=== PATIENT | female | born 1950 | race Caucasian/White ===

== ENCOUNTER → 2016-08-29 | Outpatient (CLI) | payer MEDICARE, BC ==
--- NOTE | 2016-08-29 17:21 | MY ---
EXAMINATION: Bilateral digital mammography utilizing CAD. HISTORY: Screening exam. Comparison is made to previous studies dated 08/13/2015, 04/06/2014, 2010.. FINDINGS: Bilateral fibroglandular densities. There is a two-view mass within the lower inner left breast which has slightly increased in size. Otherwise, no suspicious calcifications, masses or ar chitectural distortions. No pathologic appearing lymph nodes, no abnormal skin thickening or nippl e inversion. Other CAD highlighted regions appear normal at this time. IMPRESSION: BI-RADS category 0 - Incomplete study. Left breast ultrasound is needed for further jay jay luation. THE FALSE-NEGATIVE RATE OF MAMMOGRAM IS APPROXIMATELY 10%. MANAGEMENT OF A PALPABLE ABNORMALITY MUST BE BASED UPON CLINICAL GROUNDS. SENSITIVITY FOR DETECTION OF ABNORMALITIES IN DENSE BREASTS IS LOW. NOTE: A letter will be sent to the patient regarding findings. [facility] -- JAYLYN Robles [phone] - FAX [phone]
== END ==
LOC: MW.MAM 08:48
PROVIDERS: ATTEND Obstetrics & Gynecology
DX: Z12.31 Encounter for screening mammogram for malignant neoplasm of breast (principal)
CPT/HCPCS: G0202; G0202-26

== ENCOUNTER → 2016-09-08 | Outpatient (CLI) | payer MEDICARE, BC | LOC: MW.CHGS 08:00 | PROVIDERS: ATTEND Surgery | DX: D12.6 Benign neoplasm of colon, unspecified (principal) | CPT/HCPCS: 99203 ==

== ENCOUNTER 2016-09-20 08:33 | Day surgery (SDC) | payer MEDICARE, BC ==
[~2016-09-20 08:33] MED LIST: Glycopyrrolate 0.2 MG/ML SDV ONE; Labetalol 100 MG/20 ML MDV ONE; Lactated Ringers 1,000 ML IV SCH; Lidocaine 2% 5 ML SDV ONE; Propofol 200 MG/20 ML SDV ONE; Sodium Chloride 0.9% 10 ML Syringe FLUSH PRN; Sodium Chloride 0.9% 2.5 ML Syringe FLUSH PRN; ePHEDrine 50 MG/ML SDV ONE; fentaNYL 100 MCG/2 ML SDV ONE
--- NOTE | 2016-09-20 09:39 | PCM.PREANE ---
Preanesthetic Assessment - Anesthesia/Transfusion/Family Hx Anesthesia History: Prior Anesthesia Without Reaction Family History of Anesthesia Reaction: No Transfusion History: No Prior Transfusion(s) - Review of Systems General: No Symptoms Pulmonary: No Symptoms Cardiovascular: No Symptoms Gastrointestinal: No symptoms Neurological: No Symptoms Other: Reports: None - Physical Assessment NPO Status Date: 09/19/16 NPO Status Time: 21:00 O2 Sat by Pulse Oximetry: 99 Respiratory Rate: 16 Vital Signs: Last Vital Signs Temp 36.9 C 09/20/16 09:02 Pulse 69 09/20/16 09:02 Resp 16 09/20/16 09:02 BP 158/78 H 09/20/16 09:02 Pulse Ox 99 09/20/16 09:02 Height: 1.64 m Weight: 85.729 kg ASA Class: 2 Mental Status: Alert & Oriented x3 Airway Class: Mallampati = 1 Dentition: Reports: Dentures Lungs: Clear to auscultation, Normal respiratory effort Cardiovascular: Regular Rate, Regular Rhythm - Allergies Allergies/Adverse Reactions: Allergies Allergy/AdvReac Type Severity Reaction Status Date / Time Penicillins Allergy Rash Verified 09/15/16 16:51 - Anesthesia Plan Pre-Op Medication Ordered: None - Acknowledgements Anesthesia Type Planned: MAC Pt an Appropriate Candidate for the Planned Anesthesia: Yes Alternatives and Risks of Anesthesia Discussed w Pt/Guardian: Yes Pt/Guardian Understands and Agrees with Anesthesia Plan: Yes PreAnesthesia Questionnaire Other HEENT History: wears glasses, has upper and lower dentures Cardiovascular History: Reports: None Respiratory History: Reports: None Gastrointestinal History: Reports: Colon polyp Genitourinary History: Reports: None [employer] WORKER History: Reports: None Musculoskeletal History: Reports: None Neurological History: Reports: None Psychiatric History: Reports: None Endocrine/Metabolic History: Reports: Obesity/BMI 30+ Hematologic History: Reports: None Immunologic History: Reports: None Oncologic (Cancer) History: Reports: None Dermatologic History: Reports: None - Past Surgical History Head Surgeries/Procedures: Reports: None HEENT Surgical History: Reports: Tonsillectomy Cardiovascular Surgical History: Reports: None Respiratory Surgical History: Reports: None GI Surgical History: Reports: Colonoscopy Female Surgical History: Reports: Breast biopsy, D&C Endocrine Surgical History: Reports: None Neurological Surgical History: Reports: None Musculoskeletal Surgical History: Reports: None Oncologic Surgical History: Reports: None Dermatological Surgical History: Reports: None - SUBSTANCE USE Smoking Status *Q: Former Smoker Recreational Drug Use History: No - HOME MEDS Home Medications: Home Meds . [No Known Home Meds] 09/15/16 [History] - CURRENT (IN HOUSE) MEDS Current Meds: Current Medications Lactated Ringer's (Ringers, Lactated) 1,000 mls @ 125 mls/hr IV ASDIRECTED [place] Last Admin: 09/20/16 09:05 Dose: 125 mls/hr Sodium Chloride (Saline Flush) 10 ml FLUSH ASDIRECTED PRN PRN Reason: Keep Vein Open Sodium Chloride (Saline Flush) 2.5 ml FLUSH ASDIRECTED PRN PRN Reason: Keep Vein Open Discontinued Medications Ephedrine Sulfate (Ephedrine Sulfate) Confirm Administered Dose 50 mg .ROUTE .STK-MED ONE Stop: 09/20/16 08:27 Fentanyl (Sublimaze) Confirm Administered Dose 100 mcg .ROUTE .STK-MED ONE Stop: 09/20/16 08:03 Glycopyrrolate (Robinul) Confirm Administered Dose 0.2 mg .ROUTE .STK-MED ONE Stop: 09/20/16 08:30 Labetalol HCl (Normodyne) Confirm Administered Dose 100 mg .ROUTE .STK-MED ONE Stop: 09/20/16 08:32 Lidocaine (Xylocaine-Mpf 2%) Confirm Administered Dose 5 ml .ROUTE .STK-MED ONE Stop: 09/20/16 08:03 Propofol (Diprivan 20 Ml) Confirm Administered Dose 400 mg .ROUTE .STK-MED ONE Stop: 09/20/16 08:03
[2016-09-20] MEDS ORDERED: Glycopyrrolate 0.2 MG/ML SDV ONE (09:51)
--- NOTE | 2016-09-20 10:18 | PCM.OPNOTE ---
- General Post-Op/Procedure Note Date of Surgery/Procedure: 09/20/16 Operative Procedure(s): Screening colonoscopy Findings: 2mm sessile polyp in transverse colon at 80cm Pre Op Diagnosis: colon polyp Post-Op Diagnosis: colon polyp and diverticulosis Anesthesia Technique: TANNER Primary Surgeon: Jonna Hsu Condition: Good
--- NOTE | 2016-09-20 10:27 | PCM.POSTAN ---
POST ANESTHESIA ASSESSMENT - MENTAL STATUS Mental Status: alert, oriented - RESPIRATORY Respiratory Status: respiratory rate WNL, airway patent - CARDIOVASCULAR CV Status: pulse rate WNL, blood pressure stable - GASTROINTESTINAL GI Status: no symptoms - POST OP HYDRATION Hydration Status: adequate & stable
--- NOTE | 2016-09-20 10:27 | PCM48HPAN ---
Post Anesthesia Note - EVALUATION WITHIN 48HRS OF ANESTHETIC Vital Signs in Normal Range: Yes Patient Participated in Evaluation: Yes Respiratory Function Stable: Yes Airway Patent: Yes Cardiovascular Function Stable: Yes Hydration Status Stable: Yes Pain Control Satisfactory: Yes Nausea and Vomiting Control Satisfactory: Yes Mental Status Recovered: Yes
[2016-09-20 10:37] VITALS: BP 120/79
--- NOTE | 2016-09-20 17:01 | OR ---
SURGEON: JONNA HSU MD DATE OF PROCEDURE: 09/20/2016 PREOPERATIVE DIAGNOSIS: History of colon polyps. POSTOPERATIVE DIAGNOSIS: Transverse colon polyp. PROCEDURE PERFORMED: Colonoscopy. ENDOSCOPIST: Jonna Hsu M.D. INSTRUMENT USED: Olympus colonoscope. ANESTHESIA: MAC. EXTENT OF EXAM: To the cecum. PREPARATION: Good. LIMITATIONS: None. INDICATIONS FOR EXAMINATION: The patient is a 66-year-old female, who had a colonoscopy done 5 years ago and was found to have a single colon polyp. Because of this, she is back for her 5- year repeat colonoscopy. We discussed the procedure as well as expected perioperative course. We discussed the risks, including bleeding, infection, or damage to surrounding structures, including perforation. The patient verbalized understanding and wishes to proceed. PROCEDURE IN DETAIL: The patient was brought to the endoscopy suite and placed in left lateral decubitus position. A time-out was completed verifying the patient's name, age, date of , allergies, and procedure to be performed. The patient had monitored anesthesia care induced and continuous oxygen was provided via facemask throughout the procedure. After adequate sedation was achieved, a digital rectal exam was performed. This examination was within normal limits. A well-lubricated colonoscope was then inserted in the rectum and advanced under direct visualization to the level of cecum. The cecum was identified by both visual and anatomic landmarks. Photographs were taken of the cecal cap as well as with the scope retroflexed within the cecum. The scope was then straightened out and fully withdrawn while examining the color, texture, anatomy, and integrity mucosa from the cecum to the anal canal. A 2-mm sessile polyp was noted within the transverse colon at 80 cm. This was removed using a cold biopsy forceps and sent to pathology. The remainder of the exam was notable for diverticulosis. The scope was then brought into the rectum and retroflexed to allow visualization of the anal canal opening. This was normal and a photograph was taken. The scope was straightened out and removed from the patient. The cecum to anus time was 10 minutes. The patient was then transferred to the recovery area in stable condition. ENDOSCOPIC DIAGNOSIS: Transverse colon polyp, diverticulosis. RECOMMENDATION: Follow up in the clinic in 2 weeks. MARIAMA / LAYNE /[id number]
== END 2016-09-20 10:45 | disposition home or self-care (01) ==
LOC: MW.SDS 08:33
PROVIDERS: ATTEND Surgery
PROC: 0DBL8ZX Excision of Transverse Colon, Via Natural or Artificial Opening Endoscopic, Diagnostic (ICD-10-PCS; principal; 2016-09-20)
DX: K63.5 Polyp of colon (principal); K57.30 Diverticulosis of large intestine without perforation or abscess without bleeding; Z88.0 Allergy status to penicillin; Z90.89 Acquired absence of other organs; Z98.890 Other specified postprocedural states; Z87.891 Personal history of nicotine dependence
CPT/HCPCS: 45380; J3010; J7120; 88305; J2704

== ENCOUNTER → 2016-10-06 | Outpatient (CLI) | payer MEDICARE, BC | LOC: MW.CHGS 08:00 | PROVIDERS: ATTEND Surgery | DX: D12.6 Benign neoplasm of colon, unspecified (principal) | CPT/HCPCS: 99211 ==

== ENCOUNTER 2023-01-26 08:17 | Day surgery (SDC) | payer MEDICARE, BC ==
[2023-01-26] MEDS ORDERED: propofoL 50 ML ONE (08:41)
[2023-01-26] MEDS ORDERED: Lactated Ringers 1,000 ML IV SCH (09:15)
[2023-01-26 12:36] VITALS: BP 120/72; PULSE 60
== END 2023-01-26 10:06 | disposition home or self-care (01) ==
LOC: MW.SDS 08:17
PROVIDERS: ATTEND Surgery
DX: Z12.11 Encounter for screening for malignant neoplasm of colon (principal); K62.1 Rectal polyp; K57.30 Diverticulosis of large intestine without perforation or abscess without bleeding; Z88.1 Allergy status to other antibiotic agents; Z88.0 Allergy status to penicillin; Z87.891 Personal history of nicotine dependence
CPT/HCPCS: 45380; J2704; J7120; 00811; 99100

== ENCOUNTER 2024-05-20 22:57 | Emergency (ER) | payer MEDICARE, BC ==
[2024-05-20 23:06] VITALS: BP 193/91
[2024-05-21] MEDS: Ketorolac 30 MG/ML SDV IM ONE (00:03)
[2024-05-21] MEDS: Lidocaine 4% 1 each Patch TOP PRN (00:06)
[2024-05-21 01:02] VITALS: PULSE 85
== END 2024-05-21 01:01 | disposition home or self-care (01) ==
LOC: MW.ED 22:57
DX: M25.551 Pain in right hip (principal); Z88.0 Allergy status to penicillin; Z88.8 Allergy status to other drugs, medicaments and biological substances; Z79.899 Other long term (current) drug therapy; Z75.8 Other problems related to medical facilities and other health care
CPT/HCPCS: 96372; 99283; A9270; J1885